=== PATIENT | male | born 1990 | race Caucasian/White ===

== ENCOUNTER 2022-04-04 19:43 | Emergency (ER) | payer SELFPAY ==
[2022-04-04 19:54] VITALS: BP 142/86; PULSE 89; TEMP 98.9; BMI 25.8
[2022-04-04] MEDS ORDERED: IBUPROFEN 600 MG TABLET (FP) PO ONE ×2 (21:30→21:33)
[2022-04-04] MEDS ORDERED: CEPHALEXIN MONOHYDRATE 250 MG CAPSULE (FP) PO ONE (21:30)
[2022-04-04] MEDS ORDERED: CEPHALEXIN MONOHYDRATE 500 MG CAPSULE (UD) PO ONE (21:32)
[2022-04-04] MEDS ORDERED: CEPHALEXIN MONOHYDRATE 500 MG CAPSULE (UD) ONE (21:32)
== END 2022-04-04 21:44 | disposition home or self-care (01) ==
LOC: JERFT 19:43
DX: L02.821 Furuncle of head [any part, except face] (principal)
CPT/HCPCS: 99283-25